=== PATIENT | male | born 1985 | race African-American/Black ===

== ENCOUNTER 2019-05-09 15:41 | Emergency (ER) | payer SELFPAY ==
[~2019-05-09] VITALS: Ht 175.3 cm; Wt 108.9 kg
[2019-05-09 15:48] VITALS: BP 143/101
--- NOTE | 2019-05-09 16:16 | PHYS DOC ---
Past Medical History Past Medical History: Asthma, Bronchitis Past Surgical History: Other Additional Past Surgical Histo: penile correction Alcohol Use: Occasionally Drug Use: None Adult General Chief Complaint Chief Complaint: SORE THROAT HPI HPI Patient is a 34 year old medical presents to the ED today complaining of sore throat that began 3 days ago. Patient states right now he is having trouble swallowing, he states he has to swallow twice for anything to go down. He states he had a peritonsillar abscess in November 2018 which was drained at [facility]. He states he feels he has another abscess and would like it drained. Denies any fever. Review of Systems Review of Systems Constitutional: Denies fever or chills [] Eyes: Denies change in visual acuity, redness, or eye pain [] HENT: Reports sore throat. Denies nasal congestion Respiratory: Denies cough or shortness of breath [] Cardiovascular: No additional information not addressed in HPI [] GI: Denies abdominal pain, nausea, vomiting, bloody stools or diarrhea [] : Denies dysuria or hematuria [] Musculoskeletal: Denies back pain or joint pain [] Integument: Denies rash or skin lesions [] Neurologic: Denies headache, focal weakness or sensory changes [] All other systems were reviewed and found to be within normal limits, except as documented in this note. Allergies Allergies Allergies Coded Allergies Type Severity Reaction Last Updated Verified No Known Drug Allergies 01/17/15 No Physical Exam Physical Exam Constitutional: Well developed, well nourished, no acute distress, non-toxic appearance. [] HENT: Normocephalic, atraumatic, bilateral external ears normal, oropharynx moist, no oral exudates, nose normal. [] Erythematous +3 tonsils worse on the left side. +2 cervical adenopathy Eyes: PERRLA, EOMI, conjunctiva normal, no discharge. [] Neck: Normal range of motion, no tenderness, supple, no stridor. [] Cardiovascular:Heart rate regular rhythm, no murmur [] Lungs & Thorax: Bilateral breath sounds clear to auscultation [] Abdomen: Bowel sounds normal, soft, no tenderness, no masses, no pulsatile masses. [] Skin: Warm, dry, no erythema, no rash. [] Back: No tenderness, no CVA tenderness. [] Extremities: No tenderness, no cyanosis, no clubbing, ROM intact, no edema. [] Neurologic: Alert and oriented X 3, normal motor function, normal sensory function, no focal deficits noted. [] Psychologic: Affect normal, judgement normal, mood normal. [] EKG EKG [] Radiology/Procedures Radiology/Procedures [] Course & Med Decision Making Course & Med Decision Making Pertinent Labs and Imaging studies reviewed. (See chart for details) This is a 34-year-old male patient presenting to the ED today complaining of sore throat for 3 days and concerned he could have another peritonsillar abscess. He reports he had one in November 2018 which was drained at that hospital. His tonsils are enlarged and he is having trouble swallowing. He seemed to tuck his chin to swallow. Informed patient to confirm a peritonsillar abscess we will have to get labs and do a CAT scan of his neck informed patient if he has a peritonsillar abscess the plan will be to transfer him to a different hospital because we do not have ENT this hospital today. Informed patient typically we start with [facility]. Patient got very upset stating he cannot go to [facility], he states he has several family members admitted and alot of his family members have at [facility]. He states he would like to go to [facility]. Informed patient [place] harder to be accepted there. He mentioned to [facility], informed him we can arrange for that transfer once we confirm the peritonsillar abscess. At this point he got more upset stating they should've told him upfront we do not have ENT and he could've gotten somewhere else he stood up and left stating he is going somewhere else. He refused to sign AMA paperwork. Dragon Disclaimer Dragon Disclaimer This electronic medical record was generated, in whole or in part, using a voice recognition dictation system. Departure Departure Impression: Primary Impression: Acute tonsillitis Disposition: 07 AGAINST MEDICAL ADVICE Condition: STABLE Referrals: NO PCP (PCP) Problem Qualifiers Primary Impression: Acute tonsillitis Pharyngitis/tonsillitis etiology: unspecified etiology Qualified Codes: J03.90 - Acute tonsillitis, unspecified CHAGO HERNANDEZ [employer] May 09, 2019 16:16
== END 2019-05-09 15:55 | disposition left against medical advice (07) ==
LOC: ER 15:41
DX: J03.90 Acute tonsillitis, unspecified (principal); J45.909 Unspecified asthma, uncomplicated
CPT/HCPCS: 99281